=== PATIENT | male | born 1940 | race Caucasian/White ===

== ENCOUNTER 2016-04-07 13:40 | Emergency (ER) | payer MEDICARE, BC ==
--- NOTE | 2016-04-07 13:58 | Emergency Department Record ---
History of Present Illness - General Chief Complaint: Dizziness Stated Complaint: DIZZINESS Time Seen by Provider: 04/07/16 13:46 Source: Patient Mode of Arrival: Wheelchair Limitations: No limitations - History of Present Illness Initial Comments: 75 yo male presents to ED with a CC of dizziness and right sided scalp pain that began approximately 1 week ago. Patient reports that his symptoms worsen with head movement and position changes, and resolves with sitting and resting. Patient denies any focal weakness, numbness, or tingling symptoms. MD Complaint: Dizziness Onset/Timin -: Week(s) Timing: Unsure History of Same: No History of Trauma: No Severity: Mild Improves With: Nothing Worsens With: Nothing Associated Symptoms: Other - [place] Coma Scale Eye Response: (4) Open spontaneously Motor Response: (6) Obeys commands Verbal Response: (5) Oriented Manish Total: 15 - Related Data Home Medications Medication Instructions Recorded Confirmed Last Taken Amlodipine Besylate [Norvasc] 10 mg PO QAM 12/23/13 04/07/16 1 Day Ago Cholecalciferol [Vitamin D3] 1,000 unit PO QAM 12/23/13 04/07/16 1 Day Ago Clopidogrel Bisulfate [Plavix] 75 mg PO QAM 12/23/13 04/07/16 1 Day Ago Folic Acid 1 mg PO QAM 12/23/13 04/07/16 1 Day Ago Metoprolol Succinate [Toprol Xl] 50 mg PO BID 12/23/13 04/07/16 1 Day Ago Nabumetone 750 mg PO BID 12/23/13 04/07/16 1 Day Ago Nitroglycerin [Nitrostat] 0.4 mg SL ASDIR PRN 12/23/13 04/07/16 01/09/14 Pantoprazole Sodium 40 mg PO QAM 12/23/13 04/07/16 1 Day Ago Potassium Chloride [K-Tab ER] 30 meq PO BID 12/23/13 04/07/16 1 Day Ago Simvastatin [Zocor] 20 mg PO QAM 12/23/13 04/07/16 1 Day Ago Valsartan/Hydrochlorothiazide 1 each PO QAM 12/23/13 04/07/16 1 Day Ago [Diovan Hct 320-25 mg Tablet] Apixaban [Eliquis] 5 mg PO BID tab 10/10/15 04/07/16 Unknown Previous Rx's Medication Instructions Recorded Meclizine HCl [Antivert] 25 mg PO Q8H PRN #20 tablet 04/07/16 Allergies Allergy/AdvReac Type Severity Reaction Status Date / Time diazepam Allergy Unknown PT UNSURE Unverified 04/07/16 13:29 OF REACTION Penicillins Allergy Unknown ITCHING Unverified 04/07/16 13:29 Allergies: Allergy Unknown PT UNSURE Uncoded 12/23/13 23:47 OF REACTION sumac Allergy DIFFICULTY Uncoded 12/23/13 23:47 BREATHING Travel Screening - Travel/Exposure Within Last 30 Days Have you traveled within the last 30 days?: No Review of Systems Constitutional: Denies: Chills, Fever, Malaise, Night sweats Eyes: Denies: Eye discharge, Eye pain ENT: Denies: Congestion, Ear pain, Epistaxis Respiratory: Denies: Cough, Dyspnea Cardiovascular: Denies: Chest pain, Dyspnea on exertion Endocrine: Denies: Fatigue, Heat or cold intolerance Gastrointestinal: Reports: Nausea. Denies: Abdominal pain, Vomiting Genitourinary: Denies: Incontinence, Retention Musculoskeletal: Denies: Arthralgia, Back pain, Gout, Joint swelling Skin: Denies: Bruising, Change in color Neurological: Denies: Abnormal gait, Confusion, Headache, Seizure Psychiatric: Denies: Anxiety Hematological/Lymphatic: Denies: Anemia, Blood Clots Past Medical History - SOCIAL HISTORY Smoking Status: Former smoker Alcohol Use: None Drug Use: None - RESPIRATORY Hx Respiratory Disorders: Yes Hx Sleep Apnea: Yes - CARDIOVASCULAR Hx Cardio Disorders: Yes Hx Cardiac Cath: Yes Hx Chest Pain: Yes Hx Heart Attack: Yes Hx Hypertension: Yes - NEURO Hx Neuro Disorders: No - GI Hx GI Disorders: Yes Hx Reflux: Yes - Hx Genitourinary Disorders: No - ENDOCRINE Hx Endocrine Disorders: No - MUSCULOSKELETAL Hx Musculoskeletal Disorders: Yes Hx Back Injury: Yes Comment:: back surgery x3 in 10 months - PSYCH Hx Psych Problems: No - HEMATOLOGY/ONCOLOGY Hx Hematology/Oncology Disorders: No Family Medical History Any Significant Family History?: Yes Hx Cancer: Brother/Sister Hx Diabetes: Mother, Brother/Sister Hx Heart Disease: Father, Mother Hx HTN: Father, Mother, Grandparents Hx Stroke: Grandparents Physical Exam - General General Appearance: Alert, Oriented x3, Cooperative, No acute distress Limitations: No limitations - Head Head exam: Atraumatic, Normocephalic, Normal inspection Head exam detail: negative: Abrasion, Contusion, Morgan's sign, General tenderness, Hematoma, Laceration - Eye Eye exam: Normal appearance. negative: Conjunctival injection, Periorbital swelling, Periorbital tenderness, Scleral icterus - ENT Ear exam: negative: Auricular hematoma, Auricular trauma Nasal Exam: negative: Active bleeding, Discharge, Dried blood, Foreign body Mouth exam: negative: Drooling, Laceration, Muffled voice, Tongue elevation - Neck Neck exam: Normal inspection. negative: Meningismus, Tenderness - Respiratory Respiratory exam: Normal lung sounds bilaterally. negative: Rales, Respiratory distress, Rhonchi, Stridor - Cardiovascular Cardiovascular Exam: Normal rhythm, Normal heart sounds, Bradycardia - GI/Abdominal GI/Abdominal exam: Soft. negative: Rebound, Rigid, Tenderness - Rectal Rectal exam: Deferred - exam: Deferred - Extremities Extremities exam: Normal inspection. negative: Calf tenderness, Pedal edema, Tenderness - Back Back exam: Denies: CVA tenderness (R), CVA tenderness (L) - Neurological Neurological exam: Alert, Normal gait, Oriented X3 - Psychiatric Psychiatric exam: Normal affect, Normal mood - Skin Skin exam: Normal color. negative: Abrasion Type of lesion: negative: abrasion Course Vital Signs 04/07/16 13:42 Temperature 97.8 F Pulse Rate 50 L Respiratory 16 Rate Blood Pressure 184/97 Pulse Ox 95 - Reevaluation(s) Reevaluation #1: 04/07/16 13:58 EKG: Sinus Bradycardia LAD, Mild IVCD T wave inversions V3-V6 Reevaluation #2: 04/07/16 14:47 Labs reviewed and are grossly unremarkable for an acute process. CT Brain: Generalized atrophy with deep white matter changes, nothing acute. Reevaluation #3: 04/07/16 15:51 Patient reassessed, reports improvement in his symptoms overall and appears stable for discharge at this time. Medical Decision Making - Lab Data Result diagrams: 04/07/16 14:15 04/07/16 14:15 Disposition Disposition: Discharge Clinical Impression: Vertigo Disposition: Home, Self-Care Condition: (2) Stable Instructions: Dizziness (ED) Additional Instructions: Return to ED if your symptoms worsen or if you have any concerns. Follow-up with your family doctor in 3-5 days as directed. Antivert as directed. Prescriptions: Meclizine HCl [Antivert] 25 mg PO Q8H PRN #20 tablet PRN Reason: Dizziness Forms: Patient Portal Access Time of Disposition: 15:52
[2016-04-07 14:23] LABS: BASO % 0.4 % (0-6); EOS % 3.4 % (0-6); GRAN % 70.5 % (47-80); HEMATOCRIT 47.1 % (42.0-52.0); HEMOGLOBIN 16.7 gm/dl (14.0-18.0); MEAN CELL VOLUME 88.5 fl (81-97); MEAN CORPUSCULAR HEMOGLOBIN 31.4 pg (27-33); MEAN CORPUSCULAR HGB CONC 35.5 g/dl (32-36); MEAN PLATELET VOLUME 11.1 fl (7.4-10.4); MONO % 11.7 % (0-9); PLATELET COUNT 128 K/uL (130-400); RED BLOOD COUNT 5.32 M/uL (4.40-5.70); RED CELL DISTRIBUTION WIDTH 13.7 % (11.5-14.5); WHITE BLOOD COUNT W/O DIFF 5.1 K/uL (4.2-12.2)
[2016-04-07 14:36] LABS: ALB/GLOB RATIO 1.5 (1.1-1.8); ALKALINE PHOSPHATASE 57 U/L (38-126); ALT/SGPT 40 U/L (21-72); ANION GAP 13.8 (7-16); AST/SGOT 28 U/L (17-59); BILIRUBIN,TOTAL 1.03 mg/dL (0.2-1.3); BLOOD UREA NITROGEN 21 mg/dL (9-20); CARBON DIOXIDE 28.2 mmol/L (22-30); CREATININE 0.9 mg/dL (0.66-1.25); EST GLOMERULAR FILTRATION RATE > 60 ml/min; GLUCOSE,RANDOM 111 mg/dL (70-110); TOTAL PROTEIN 6.7 gm/dL (6.3-8.2)
[2016-04-07] MEDS ORDERED: MECLIZINE 25 MG TABLET PO ONE (14:49)
== END 2016-04-07 16:12 | disposition home or self-care (01) ==
LOC: ER 13:40
DX: R42 Dizziness and giddiness (principal); I10 Essential (primary) hypertension; Z87.891 Personal history of nicotine dependence; I25.2 Old myocardial infarction
CPT/HCPCS: 70450; 80053; 85025; 93005; 93010; 99284

== ENCOUNTER 2016-10-04 18:26 | Emergency (ER) | payer MEDICARE, BC ==
--- NOTE | 2016-10-04 18:49 | Emergency Department Record ---
History of Present Illness - General Chief complaint: Male Urogenital Problem Stated complaint: BLOOD IN URINE Time Seen by Provider: 10/04/16 18:38 Source: Patient Mode of Arrival: Ambulatory Limitations: No limitations - History of Present Illness Initial comments: The patient is here due to blood in his urine for the last 2-3 days off and on. He denies any AP, nausea, vomiting, or back pain. The patient states he has had this issue off and on for almost 6 months and it seems to be worse when he mows the lawn and feels like he is getting aurelia on the mower. He is on Eliquis for his heart and was in the a month or so ago and did receive Macrobid for this issue which did improve his symptoms. MD Complaint: Dysuria Onset/Timin -: Days(s) Severity: Mild Severity scale (1-10): 1 Quality: Aching Reports: Blood in urine - Related Data Previous Rx's Medication Instructions Recorded Ciprofloxacin HCl [Cipro] 500 mg PO Q12HR #14 tablet 10/04/16 Allergies Allergy/AdvReac Type Severity Reaction Status Date / Time diazepam Allergy Unknown PT UNSURE Verified 10/04/16 18:38 OF REACTION Penicillins Allergy Unknown ITCHING Verified 10/04/16 18:38 pneumococcal vaccine Allergy PT UNSURE Verified 10/04/16 19:38 OF REACTION sumac Allergy Severe DIFFICULTY Uncoded 10/04/16 18:38 BREATHING Travel Screening - Travel/Exposure Within Last 30 Days Have you traveled within the last 30 days?: No - Travel/Exposure Within Last Year Have you traveled outside the [place] in the last year?: No - Additonal Travel Details Have you been exposed to anyone with a communicable illness?: No - Travel Symptoms Symptom Screening: None Review of Systems Constitutional: Denies: Chills, Fever Past Medical History - SOCIAL HISTORY Smoking Status: Former smoker Alcohol Use: None Drug Use: None - RESPIRATORY Hx Respiratory Disorders: Yes Hx Sleep Apnea: Yes Hx of CPAP: No - CARDIOVASCULAR Hx Cardio Disorders: Yes Hx Cardiac Cath: Yes Hx Chest Pain: Yes Hx Heart Attack: Yes Hx Hypertension: Yes - NEURO Hx Neuro Disorders: No - GI Hx GI Disorders: Yes Hx Reflux: Yes - Hx Genitourinary Disorders: Yes Comment:: one kidney, congenital - ENDOCRINE Hx Endocrine Disorders: No - MUSCULOSKELETAL Hx Musculoskeletal Disorders: Yes Hx Back Injury: Yes Comment:: back surgery x3 in 10 months - PSYCH Hx Psych Problems: No - HEMATOLOGY/ONCOLOGY Hx Hematology/Oncology Disorders: No Family Medical History Any Significant Family History?: Yes Hx Cancer: Brother/Sister Hx Diabetes: Mother, Brother/Sister Hx Heart Disease: Father, Mother Hx HTN: Father, Mother, Grandparents Hx Stroke: Grandparents Physical Exam - General General Appearance: Alert, Oriented x3, Cooperative, No acute distress - Head Head exam: Atraumatic, Normocephalic, Normal inspection - Eye Eye exam: Normal appearance, PERRL - Neck Neck exam: Normal inspection, Full ROM. negative: Tenderness - Respiratory Respiratory exam: Normal lung sounds bilaterally. negative: Respiratory distress - Cardiovascular Cardiovascular Exam: Regular rate, Normal rhythm, Normal heart sounds - GI/Abdominal GI/Abdominal exam: Soft, Normal bowel sounds. negative: Tenderness - Extremities Extremities exam: Normal inspection, Full ROM, Normal capillary refill. negative: Tenderness - Back Back exam: Reports: Normal inspection. Denies: CVA tenderness (R), CVA tenderness (L), Paraspinal tenderness Course Vital Signs 10/04/16 18:29 Temperature 98.9 F Pulse Rate 66 Respiratory 20 Rate Blood Pressure 181/93 Pulse Ox 94 L - Reevaluation(s) Reevaluation #1: The patient is doing very well at this time. I did explain to him that he most likely has a bladder infection but due to the blood thinners he is on it is causing some hematuria. We will order the patient a noncontrast CT due to the hx of hematuria and have him F/U with his PCP later this week. 10/04/16 19:34 Reevaluation #2: The patient is doing well and denies any pain or discomfort. I did explain the results to him and the need for F/U. 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 No hydro or calcifications present. Urinary bladder appears slightly irregular.) Disposition Disposition: Discharge Clinical Impression: Hematuria Qualifiers: Hematuria type: unspecified type Qualified Code(s): R31.9 - Hematuria, unspecified Disposition: Home, Self-Care Condition: (1) Good Instructions: Hematuria (ED) Additional Instructions: Please take the Cipro as directed and decrease your dose of Eliquis to 2.5 mg BID for 7 days. Please drink plenty of fluids. Please see your PCP next week for recheck and also F/U with Dr. Schaeffer in the [facility] as directed. Return to the ER for any worsening symptoms, pain, fever, or vomiting. Prescriptions: Ciprofloxacin HCl [Cipro] 500 mg PO Q12HR #14 tablet Referrals: [facility] [Provider Group] Forms: Patient Portal Access Time of Disposition: 20:39 Quality - Quality Measures Quality Measures: N/A - Blood Pressure Screening View Details: Yes Does Patient Have Any of the Following: No Blood Pressure Classification: Hypertensive Reading Systolic Measurement: 181 Diastolic Measurement: 93 Screening for High Blood Pressure: < Pre-Hypertensive BP, F/U Documented > [ [id number]] Pre-Hypertensive Follow-up Interventions: Referral to alternative/primary care provider.
[2016-10-04 18:50] LABS: URINE BILIRUBIN NEGATIVE (NEGATIVE); URINE BLOOD LARGE (NEGATIVE); URINE COLOR RED; URINE GLUCOSE (UA) NEGATIVE (NEGATIVE); URINE KETONE TRACE (NEGATIVE); URINE LEUKOCYTE ESTERASE MODERATE (NEGATIVE); URINE NITRITE POSITIVE (NEGATIVE)
[2016-10-04 18:51] LABS: URINE APPEARANCE BLOODY; URINE PROTEIN 300 mg/dL (NEGATIVE)
[2016-10-04 18:56] LABS: URINE BACTERIA FEW; URINE EPITHELIAL CELLS 0 - 2 (FEW); URINE RBC TNTC (NONE SEEN)
[2016-10-04 19:10] LABS: BASO % 0.8 % (0-6); EOS % 4.2 % (0-6); GRAN % 65.5 % (47-80); HEMATOCRIT 47.6 % (42.0-52.0); HEMOGLOBIN 16.8 gm/dl (14.0-18.0); LYMPH % 18.7 % (16-45); MEAN CELL VOLUME 87.5 fl (81-97); MEAN CORPUSCULAR HEMOGLOBIN 30.9 pg (27-33); MEAN CORPUSCULAR HGB CONC 35.3 g/dl (32-36); MEAN PLATELET VOLUME 11.2 fl (7.4-10.4); MONO % 10.8 % (0-9); PLATELET COUNT 141 K/uL (130-400); RED BLOOD COUNT 5.44 M/uL (4.40-5.70); RED CELL DISTRIBUTION WIDTH 13.4 % (11.5-14.5); WHITE BLOOD COUNT W/O DIFF 5.3 K/uL (4.2-12.2)
[2016-10-04 19:22] LABS: ALBUMIN 4.2 gm/dL (3.5-5.0); ALKALINE PHOSPHATASE 60 U/L (38-126); ALT/SGPT 48 U/L (21-72); ANION GAP 10.6 (7-16); AST/SGOT 34 U/L (17-59); BILIRUBIN,TOTAL 0.85 mg/dL (0.2-1.3); BLOOD UREA NITROGEN 19 mg/dL (9-20); CARBON DIOXIDE 24.4 mmol/L (22-30); EST GLOMERULAR FILTRATION RATE > 60 ml/min; GLUCOSE,RANDOM 158 mg/dL (70-110); TOTAL PROTEIN 6.8 gm/dL (6.3-8.2)
[2016-10-04] MEDS ORDERED: CIPROFLOXACIN HCL 500 MG TABLET PO ONE (19:30)
--- NOTE | 2016-10-06 07:24 | CT SCAN REPORT ---
EXAM: CT OF THE ABDOMEN AND PELVIS WITHOUT CONTRAST HISTORY: HEMATURIA. TECHNIQUE: Routine noncontrast CT examination of the abdomen and pelvis was performed without intravenous contrast administration. Comparison: None. FINDINGS: There is mild dependent atelectasis in each lung base. Minor linear scarring versus atelectasis also noted in the anterior lung bases. No pleural or pericardial effusion. The heart is not enlarged. The distal portion of the thoracic aorta is tortuous and atherosclerotic. There is diffuse decreased density of the liver relative to the spleen consistent with steatosis. There is a geographic area of relative hyperdensity within the lateral segment of the left liver lobe measuring 6.5 x 3.9 x 3.5 cm consistent with sparing from fatty infiltration. A small focus of sparing is also noted adjacent to the gallbladder fossa. No suspicious focal hepatic lesion is identified. The spleen, pancreas, and adrenal glands are normal in appearance. There is absence of any normal appearing left sided kidney. The right kidney is relatively normal in position. There is a soft tissue density structure contiguous with the inferomedial margin of the right kidney measuring 5.1 x 7.1 x 4.0 cm. It is indeterminate whether this is a dystrophic ectopic left kidney fused with the right kidney or an exophytic renal mass. It does not have separate renal sinus. No nephrolithiasis is seen. The right renal collecting system is normal in caliber. The right ureter is normal in appearance. There may be a left ureter arising from the above described mass like structure near its medial margin also normal in caliber. Evaluation of the urinary bladder is limited by lack of distention. Wall thickening of the urinary bladder superiorly on the right would be difficult to exclude. No definite pelvic mass nor lymphadenopathy. No gross bowel dilatation nor bowel wall thickening. Evaluation of the distal colon and rectum is limited by lack of distention. Fat density prominence is demonstrated within the right inguinal canal consistent with spermatic cord lipoma or fat within an inguinal hernia sac. There is also a possible tiny fat filled direct inguinal hernia on the left. No lytic or blastic bone lesion. There are degenerative changes scattered within the visualized spine. Post laminectomy changes at the L5 level. IMPRESSION: 1. ABSENCE OF A NORMAL APPEARING LEFT SIDED KIDNEY. SOFT TISSUE DENSITY STRUCTURE CONTIGUOUS WITH THE INFEROMEDIAL MARGIN OF THE RIGHT KIDNEY MEASURING 4.0 X 5.1 X 7.1 CM. 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 FURTHER EVALUATION WITH CT UROGRAM IS RECOMMENDED TO EXCLUDE UNDERLYING MALIGNANCY AN ISODENSE COLLECTING SYSTEM OF THE PRESUMED ECTOPIC KIDNEY SECONDARY TO HEMORRHAGE CANNOT BE EXCLUDED. 2. NO EVIDENCE OF OBSTRUCTIVE UROPATHY. 3. EVALUATION OF THE URINARY BLADDER IS LIMITED BY LACK OF DISTENTION. MILD WALL THICKENING OF THE URINARY BLADDER SUPERIORLY AND RIGHTWARD IS DIFFICULT TO EXCLUDE. 4. HEPATIC STEATOSIS WITH AREAS OF SPARING. 5. RIGHT INGUINAL HERNIA. POSSIBLE TINY LEFT INGUINAL HERNIA. 6. NOT MENTIONED ABOVE IS A CALCIFIED GRANULOMA IN THE RIGHT LUNG BASE. JOB NUMBER: [id number] [facility]
== END 2016-10-04 20:55 | disposition home or self-care (01) ==
LOC: ER 18:26
DX: R31.0 Gross hematuria (principal); R30.0 Dysuria; Z79.01 Long term (current) use of anticoagulants; I10 Essential (primary) hypertension; I25.2 Old myocardial infarction; Z87.891 Personal history of nicotine dependence
CPT/HCPCS: 74176; 80048; 80076; 81001; 85025; 99283; 99284

== ENCOUNTER 2016-12-28 10:18 | Day surgery (SDC) | payer MEDICARE, BC ==
[~2016-12-28 10:18] MED LIST: ACETAMINOPHEN 1,000 MG/100 ML BTL IV ONE; CEFAZOLIN 2 Gram 2 GM/50 ML BAG IVPB ONE
[2016-12-28] MEDS ORDERED: PROPOFOL 10 MG/ML VIAL IV ONE (10:19)
[2016-12-28] MEDS ORDERED: LIDOCAINE 2% MDV (20MG/ML) 20ML VIAL IV ONE (10:19)
[2016-12-28] MEDS ORDERED: MIDAZOLAM HCL 2MG/2ML VIAL IV ONE (10:19)
[2016-12-28] MEDS ORDERED: FAMOTIDINE 20MG TABLET PO ONE (10:19)
[2016-12-28] MEDS ORDERED: ONDANSETRON HCL IV 4 MG/2 ML VIAL IVP ONE (10:19)
[2016-12-28] MEDS ORDERED: BUPIVACAINE 0.25% W/EPI MPF 30ML VIAL IVP ONE (10:19)
[2016-12-28] MEDS ORDERED: MECLIZINE 25 MG TABLET PO ONE (10:19)
[2016-12-28] MEDS ORDERED: FENTANYL PF 100MCG/2ML VIAL IV ONE (10:19)
[2016-12-28] MEDS ORDERED: SEVOFLURANE 250 ML INH ONE (10:19)
[2016-12-28] MEDS ORDERED: METOCLOPRAMIDE 10 MG TABLET PO ONE (10:19)
[2016-12-28] MEDS ORDERED: HEPARIN SODIUM FLUSH 100 UNITS/ML SYR 5ML IVP ONE (10:19)
[2016-12-28 10:48] LABS: BASO % 0.7 % (0-6); EOS % 3.3 % (0-6); GRAN % 72.3 % (47-80); HEMATOCRIT 48.7 % (42.0-52.0); HEMOGLOBIN 16.8 gm/dl (14.0-18.0); LYMPH % 13.2 % (16-45); MEAN CELL VOLUME 88.1 fl (81-97); MEAN CORPUSCULAR HEMOGLOBIN 30.4 pg (27-33); MEAN CORPUSCULAR HGB CONC 34.5 g/dl (32-36); MEAN PLATELET VOLUME 11.1 fl (7.4-10.4); MONO % 10.5 % (0-9); PLATELET COUNT 147 K/uL (130-400); RED BLOOD COUNT 5.53 M/uL (4.40-5.70)
[2016-12-28 11:07] LABS: BLOOD UREA NITROGEN 21 mg/dL (8-23); CREATININE 0.9 mg/dL (0.7-1.2); EST GLOMERULAR FILTRATION RATE > 60 mL/min; GLUCOSE,RANDOM 115 mg/dL (74-109)
--- NOTE | 2016-12-29 08:46 | RADIOLOGY REPORT ---
EXAM: PORTABLE CHEST HISTORY: POST [id number] INSERTION. TECHNIQUE: A single AP portable view of the chest was obtained. Comparison: Portable chest 04/03/14. FINDINGS: Since the prior exam a left subclavian venous catheter has been placed presumably corresponding to the venous access port, with the catheter tip extending down into the region of the right atrium. No definite pneumothorax identified. No pleural effusion evident. Mild torsion of the aorta. IMPRESSION: VENOUS ACCESS PORT PLACED FROM THE LEFT WITH THE CATHETER EXTENDING DOWN INTO THE REGION OF THE RIGHT ATRIUM. NO DEFINITE PNEUMOTHORAX IDENTIFIED. JOB NUMBER: [id number] [facility]
--- NOTE | 2016-12-29 12:50 | Operative Note ---
DATE OF SURGERY: 12/28/2016 Surgeon: Gallo Craig DO PREOPERATIVE DIAGNOSIS: Bladder cancer. POSTOPERATIVE DIAGNOSIS: Bladder cancer. OPERATION: Infusaport with C-arm. Indication: The patient is a 75-year-old male who has an unfortunate diagnosis of bladder cancer. [place] was [place] [facility] [place]. Risks, benefits, and alternatives were discussed. Risks including bleeding, infection, 1% chance of pneumothorax, malfunctioning port, need for replacement. He understood this full. PROCEDURE: Thereafter, consent was signed and questions answered. He was taken to the operating room and placed in a supine position. General anesthesia was administered per the department of anesthesia. The patient's arms were tucked to the side. His upper chest and neck were shaved of hair and prepped and draped in the usual fashion. Adequate timeout was performed. He did receive preoperative antibiotic as well as DVT prophylaxis. A roll was placed between his shoulder blades. At this time, he was placed into Trendelenburg position. The patient's left subclavian region was anesthetized with a total of 8 mL of 0.25% Sensorcaine with epinephrine. At this time, an 18-gauge finder needle was used to cannulate the left subclavian vein on the first attempt. Through this, a guidewire was inserted under direct visualization. Once this was in adequate position, a pocket was created inferior to this. A 9.[place] single-lumen port was then assembled and trimmed. A dilator and Peel-Away sheath were used, fed over the wire under direct visualization. The wire and dilator were removed as the catheter was fed down the lumen of the Peel-Away sheath. After this was done, this was noted to be in adequate position. The distal tip was in appropriate position. This was aspirated and flushed without difficulty with a Rosales needle. The port was then sutured to the pectoralis fascia with 0 Vicryl in 3 spots. The skin was then closed with 4-0 Vicryl. He was taken to the recovery room in satisfactory condition. Chest x-ray pending. CC: ISAI BLACKWOOD D.O. Dr. Josh BADILLO
== END 2016-12-28 15:00 | disposition home or self-care (01) ==
LOC: SUR 10:18
PROVIDERS: ATTEND Surgery
DX: Z45.2 Encounter for adjustment and management of vascular access device (principal); I48.2 Chronic atrial fibrillation; Z79.01 Long term (current) use of anticoagulants; I10 Essential (primary) hypertension; E78.00 Pure hypercholesterolemia, unspecified
CPT/HCPCS: 36561; 00532; 85025; 80048; 71010; 77001; J2405; J3010; J1642; J0690

== ENCOUNTER 2017-08-24 14:49 | Emergency (ER) | payer MEDICARE, BC ==
[2017-08-24] MEDS ORDERED: SODIUM CHLORIDE 0.9% 500 ML IV ONE (14:50)
[2017-08-24] MEDS ORDERED: ONDANSETRON HCL IV 4 MG/2 ML VIAL IVP ONE (14:50)
--- NOTE | 2017-08-24 14:53 | Emergency Department Record ---
History of Present Illness - General Stated Complaint: VOMITING Time Seen by Provider: 08/24/17 14:49 Source: Patient, Family Mode of Arrival: Ambulatory Limitations: No limitations - History of Present Illness Initial Comments: 76 yo male presents with nausea and vomiting since this morning. He has known bladder cancer. He has been treated with radiation and chemo. He reports he has had bloody urine for 1.5 months. He states he is treated at the [facility]. He denies current abdominal pain. No fever. No diarrhea. His PCP is Dr Hernandez. He states he is scheduled for surgery for his bladder cancer in one month at the [facility]. He has seen his urology surgeon in the last week. His doctor in aware of the 1.5 months of hematuria. He has not had retention so he has not had a weiss catheter. His surgeon is Dr Ghassan Vizcaino of [facility]. He was last seen on August 19. Complaint: Other -: Hour(s) (4) Location: Other (Denies pain) Migration to: Other Severity: Moderate Quality: Other Consistency: Constant Improves With: Nothing Worsens With: Nothing Associated Symptoms: Other (1.5 months of hematuria) - Related Data Previous Rx's Medication Instructions Recorded Promethazine HCl [Phenergan] 25 mg PO Q8H PRN #20 tablet 08/24/17 Promethazine HCl [Phenergan] 50 mg RC Q8H PRN #14 supp.rect 08/24/17 Allergies Allergy/AdvReac Type Severity Reaction Status Date / Time diazepam Allergy Severe severe Verified 08/24/17 14:57 hypotension Penicillins Allergy Intermediate RASH Verified 08/24/17 14:57 pneumococcal vaccine Allergy PT UNSURE Verified 08/24/17 14:57 OF REACTION sumac Allergy Severe ANAPHYLAXIS Uncoded 10/30/16 16:52 Review of Systems Constitutional: Denies: Chills, Fever, Malaise, Weakness Eyes: Denies: Eye discharge ENT: Denies: Congestion, Throat pain Respiratory: Denies: Cough, Dyspnea Cardiovascular: Denies: Chest pain, Syncope Endocrine: Denies: Fatigue, Polydipsia, Polyuria Gastrointestinal: Reports: Nausea, Vomiting. Denies: Abdominal pain, Constipation, Diarrhea, Hematemesis, Hematochezia, Melena Genitourinary: Reports: Frequency, Hematuria Musculoskeletal: Denies: Arthralgia, Back pain, Myalgia Skin: Denies: Bruising, Change in color, Rash Neurological: Denies: Confusion, Headache, Numbness, Weakness Psychiatric: Denies: Anxiety Hematological/Lymphatic: Denies: Easy bleeding, Easy bruising, Swollen glands Past Medical History - SOCIAL HISTORY Smoking Status: Former smoker Alcohol Use Comment: maybe 4 beers a yr if it is hot outside - RESPIRATORY Hx Respiratory Disorders: Yes Hx Sleep Apnea: Yes Hx of CPAP: No - CARDIOVASCULAR Hx Cardio Disorders: Yes Hx Abnormal EKG: Yes ([place]) Hx Cardiac Cath: Yes Hx Chest Pain: Yes (none recently-last pain 2yrs ago) Hx Heart Attack: Yes (several MIs x6) Hx Hypertension: Yes (meds fair control) Hx Irregular Heartbeat: Yes (Afib) Hx Coronary Artery Disease: Yes Hx Coronary Stent: Yes (2002 -x1) Comment:: high cholesterol - NEURO Hx Neuro Disorders: No - GI Hx GI Disorders: Yes Hx Reflux: Yes Hx of Polyps: Yes - Hx Genitourinary Disorders: Yes Hx Bladder Problem: Yes (blood in urine for past 3 months) 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, congenital - ENDOCRINE Hx Endocrine Disorders: No - MUSCULOSKELETAL Hx Musculoskeletal Disorders: Yes Hx Arthritis: Yes (elbows) Hx Back Injury: Yes Comment:: back surgery x3 in 10 months - PSYCH Hx Psych Problems: No - HEMATOLOGY/ONCOLOGY Hx Hematology/Oncology Disorders: Yes Hx Cancer: Yes (bladder) Comment:: on blood thinner for heart stents Family Medical History Hx Cancer: Brother/Sister Hx Diabetes: Mother, Brother/Sister Hx Heart Disease: Father, Mother Hx HTN: Father, Mother, Grandparents Hx Stroke: Grandparents Physical Exam - General General Appearance: Alert, Oriented x3, Cooperative, No acute distress (Vomiting ) Limitations: No limitations - Head Head exam: Atraumatic, Normal inspection - Eye Eye exam: Normal appearance. negative: Conjunctival injection, Scleral icterus - ENT ENT exam: Normal exam, Mucous membranes moist Ear exam: Normal external inspection Nasal Exam: Normal inspection Mouth exam: Normal external inspection - Neck Neck exam: Normal inspection - Respiratory Respiratory exam: Normal lung sounds bilaterally. negative: Respiratory distress - Cardiovascular Cardiovascular Exam: Regular rate, Normal rhythm, Normal heart sounds - GI/Abdominal GI/Abdominal exam: Soft. negative: Tenderness - Extremities Extremities exam: Normal inspection - Back Back exam: Reports: Normal inspection, Full ROM. Denies: CVA tenderness (R), CVA tenderness (L), Muscle spasm, Rash noted, Tenderness - Neurological Neurological exam: Alert, Oriented X3 - Psychiatric Psychiatric exam: Normal affect, Normal mood - Skin Skin exam: Dry, Intact, Normal color, Warm Course - Reevaluation(s) Reevaluation #1: The CBC and CMP were reviewed. No acute changes on the labs Normal WBC and Hgb. 08/24/17 15:37 08/24/17 15:45 On recheck the pain level remains 0/10. He denies pain on arrival His nausea is well controlled at 0/10 PO challenge will be attempted as he is asking for water or ice chips. 08/24/17 15:52 The UA is negative for bacteria or WBC. It is N and LE negative. 08/24/17 16:14 The patient continues to feel greatly improved with the Phenergan. He will be given and Rx for tabs and suppositories for home. We discussed the results and the reasons for return to the ED. Medical Decision Making - Lab Data Result diagrams: 08/24/17 14:30 08/24/17 14:30 Disposition Disposition: Discharge Clinical Impression: Nausea and vomiting Qualifiers: Vomiting type: unspecified Vomiting Intractability: non-intractable Qualified Code(s): R11.2 - Nausea with vomiting, unspecified Hematuria Qualifiers: Hematuria type: gross Qualified Code(s): R31.0 - Gross hematuria Disposition: Home, Self-Care Condition: (1) Good Instructions: Acute Nausea and Vomiting (ED) Additional Instructions: Take the prescriptions provided today as directed. Call your family doctor and your urologist. Call to schedule the next available appointment for a recheck. Return to ED if your symptoms worsen or if you have any new concerns. Review the final Emergency Record and test results with your doctor on follow up Prescriptions: Promethazine HCl [Phenergan] 25 mg PO Q8H PRN #20 tablet PRN Reason: Nausea Promethazine HCl [Phenergan] 50 mg RC Q8H PRN #14 supp.rect PRN Reason: Nausea Time of Disposition: 16:17 Quality - Quality Measures Quality Measures: N/A - Blood Pressure Screening Does Patient Have Any of the Following: Active Dx of HTN Blood Pressure Classification: Pre-Hypertensive BP Reading Systolic Measurement: 135 Diastolic Measurement: 77 Screening for High Blood Pressure: Patient Exclusion, Hx of HTN [[id number]]
[2017-08-24 14:58] LABS: HEMATOCRIT 37.3 % (42.0-52.0); HEMOGLOBIN 12.9 gm/dl (14.0-18.0); MEAN CELL VOLUME 91.6 fl (81-97); MEAN CORPUSCULAR HGB CONC 34.6 g/dl (32-36); MEAN PLATELET VOLUME 10.6 fl (7.4-10.4); PLATELET COUNT 184 K/uL (130-400); RED BLOOD COUNT 4.07 M/uL (4.40-5.70); RED CELL DISTRIBUTION WIDTH 13.9 % (11.5-14.5); WHITE BLOOD COUNT W/O DIFF 6.3 K/uL (4.2-12.2)
[2017-08-24 14:59] LABS: MEAN CORPUSCULAR HEMOGLOBIN 31.6 pg (27-33)
[2017-08-24 15:09] LABS: BLOOD UREA NITROGEN 24 mg/dL (8-23); CREATININE 0.7 mg/dL (0.7-1.2); EST GLOMERULAR FILTRATION RATE > 60 mL/min
[2017-08-24 15:10] LABS: TOTAL PROTEIN 6.7 g/dL (6.6-8.7)
[2017-08-24] MEDS ORDERED: PROMETHAZINE HCL 12.5 MG in 0.9 % SODIUM CHLORIDE 100ML 100 ML IVPB ONE (15:10)
[2017-08-24 15:12] LABS: GLUCOSE,RANDOM 145 mg/dL (74-109); PARTIAL THROMBOPLASTIN TIME 36.2 SECONDS (24.5-39.1); PROTHROMBIN TIME (PATIENT) 11.2 SECONDS (9.5-12.1)
[2017-08-24 15:15] LABS: ALB/GLOB RATIO 1.6 (1.1-1.8); ALBUMIN 4.1 g/dL (4.0-5.0); ALKALINE PHOSPHATASE 69 U/L (40-129); ALT/SGPT 13 U/L (<41); AST/SGOT 29 U/L (10.0-50.0)
[2017-08-24 15:44] LABS: URINE APPEARANCE TURBID; URINE BILIRUBIN NEGATIVE (NEGATIVE); URINE BLOOD LARGE (NEGATIVE); URINE COLOR RED; URINE GLUCOSE (UA) NEGATIVE (NEGATIVE); URINE KETONE TRACE (NEGATIVE); URINE LEUKOCYTE ESTERASE TRACE (NEGATIVE); URINE NITRITE NEGATIVE (NEGATIVE); URINE UROBILINOGEN 0.2 E.U./dL (0.20 - 1.00)
[2017-08-24 15:48] LABS: URINE PROTEIN 300 mg/dL (NEGATIVE)
[2017-08-24 15:49] LABS: URINE BACTERIA NONE SEEN; URINE EPITHELIAL CELLS 0 - 2 (FEW); URINE WBC 0 - 2 (0-2/hpf)
== END 2017-08-24 16:36 | disposition home or self-care (01) ==
LOC: ER 14:49
DX: R11.2 Nausea with vomiting, unspecified (principal); R31.0 Gross hematuria; C67.9 Malignant neoplasm of bladder, unspecified; I10 Essential (primary) hypertension; I25.2 Old myocardial infarction; I48.91 Unspecified atrial fibrillation; Z79.01 Long term (current) use of anticoagulants; Z87.891 Personal history of nicotine dependence
CPT/HCPCS: 80053; 81001; 85027; 85610; 85730; 96365; 96375; 99284; J2405; J2550

== ENCOUNTER 2017-10-18 11:37 | Inpatient (IN) | payer MEDICARE, BC ==
[2017-10-18] MEDS ORDERED: ONDANSETRON 4 MG ODT TABLET SL PRN (14:25)
[2017-10-18] MEDS ORDERED: METOCLOPRAMIDE 10 MG TABLET PO PRN (14:25)
--- NOTE | 2017-10-18 15:44 | History & Physical ---
History of Present Illness - Date Date of Service for History & Physical: 10/18/17 - History of Present Illness Admitting Diagnosis: Deconditioning d/t pyelonephritis History of Present Illness: PMHx: Multiple RI, HTN, Bladder CA, s/p bladder removal. SVT? Pt was admitted to our service for pyelonephritis and severe post-op penile pain. During his stay on our inpt service, pt was accepted for transfer to [facility] via urologist Dr. Ferris for his post-op pain but a bed was not available. He had ANNE MARIE which trended down to normal when fluids were stopped (evidence of hydronephrosis on CT) and nephrotoxic meds were avoided. WBC's trended down with rocephin IV BID. BP meds were held during his entire stay given that he was hypotensive on admission and normotensive without them. Urine cx showed E.coli sensitive to rocephin and pt will be transitioned to PO cefdinir BID for 5 additional days on the swingbed service. Pt's post op pain however did not reduce during his stay and he still requires 30mg morphine Q4 hours and tylenol 1000mg Q6 hours scheduled. Appointment with Dr. Ferris (urology/oncology) scheduled on outpt basis, hopefully for Nupur to schedule for this week. Pt is poor historian and is unsure why he is on eliquis. He has prior problem on chart of SVT but no a-fib. Without BB pt had normal HR during his stay. Today he has no complaints other than consistent penile pain described as urgency. General - Cognitive Patterns Speech: Normal Thought Process: Intact Thought Content: Normal Orientation: Oriented x3 - Communication Preferred Language?: Occitan Sample Coordinator Required: No Preferred Method of Learning: Seeing, Doing, Reading Comprehension Ability: No Impairment Able to Read: Yes Able to Write: Yes Select best description of speech pattern: Clear Speech Ability to express ideas and wants: Understood Understanding verbal content: Understands - Psychosocial Well-Being Usual Living Arrangement: Spouse - Physical Functioning Activity Level: Up with assist x1 Turning: Self ad sim ROM Ability: Moves all extremities Assistive Devices: 2 Wheel Walker Ambulation Ability: Needs Assist Bed Mobility: Independent Transfer Ability: Needs Assist Bathing Ability: Independent Personal Hygiene: Independent Dressing Ability: Independent Eating (Feeding) Ability: Independent Toileting Ability: Needs Assist Administer Own Medication: Independent - Continence Bowel Pattern: Normal for Patient Bladder Pattern: Normal, Dribbling - Dental Status Unable to examine: No Broken or loosely fitting full or partial dentures: No No natural teeth or tooth fragment(s) (edentulous): No Abnormal mouth tissue (ulcers, masses, oral lesions, etc.): No Obvious or likely cavity or broken natural teeth: No Inflamed or bleeding gums or loose natural teeth: No Mouth/facial pain, discomfort or difficulty chewing: No - Nutrition Screening Poor oral intake > 1 week: No Unplanned weight loss in specified time frame: Yes Nutrition Support via tube feedings or parenteral nutrition: No Pressure Ulcer: No Significantly underweight define as BMI <18.5 kg/m2: No Albumin <2.5mg/dL: No Persistent nausea/vomiting/diarrhea >3 days: No Difficulty chewing/swallowing/mouth sores: No Admitting Diagnosis: Yes Nutrition Risk Score: High Risk Review of Systems Constitutional: Reports: Weakness (generalized). Denies: Chills, Fever, Malaise Eyes: Denies: Eye discharge, Eye pain, Photophobia, Vision change ENT: Denies: Congestion, Ear pain Respiratory: Denies: Cough, Dyspnea, Wheezes Cardiovascular: Denies: Arrhythmia, Chest pain, Dyspnea on exertion, Murmurs, Orthopnea, Palpitations Gastrointestinal: Denies: Abdominal pain, Constipation, Diarrhea, Nausea, Vomiting Genitourinary: Reports: Urgency. Denies: Discharge, Dysuria, Testicular pain, Testicular mass Skin: Denies: Bruising Neurological: Reports: Weakness (generalized). Denies: Tremors Psychiatric: Denies: Anxiety, Depression Hematological/Lymphatic: Reports: Anemia (chronic) Past Medical History - SOCIAL HISTORY Smoking Status: Former smoker Alcohol Use Comment: maybe 4 beers a yr if it is hot outside - SURGICAL HISTORY Past Surgical History: Rt Elbow X 2;. Back Surgery (Ruptured disc) L-4 to L-5 x 3;. Cardiac Stent x 1 2001;. Several Heart Cath (Thinks about 7);. colonoscopy. bladder removal. prostate removal. urostomy placed. chemo for bladder cancer and radiation. 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, congenital - ENDOCRINE Hx Endocrine Disorders: No - MUSCULOSKELETAL Hx Musculoskeletal Disorders: Yes Hx Arthritis: Yes (elbows) Hx Back Injury: Yes Comment:: back surgery x3 in 10 months - PSYCH Hx Psych Problems: No - HEMATOLOGY/ONCOLOGY Hx Hematology/Oncology Disorders: Yes Hx Cancer: Yes (bladder) Comment:: on blood thinner for heart stents Family Medical History Any Significant Family History?: Yes Hx Cancer: Brother/Sister Hx Diabetes: Mother, Brother/Sister Hx Heart Disease: Father, Mother Hx HTN: Father, Mother, Grandparents Hx Stroke: Grandparents H&P Meds/Allergies - Allergies Allergies: Allergies Allergy/AdvReac Type Severity Reaction Status Date / Time diazepam Allergy Severe severe Verified 08/24/17 14:57 hypotension Penicillins Allergy Intermediate RASH Verified 08/24/17 14:57 pneumococcal vaccine Allergy PT UNSURE Verified 08/24/17 14:57 OF REACTION sumac Allergy Severe ANAPHYLAXIS Uncoded 10/30/16 16:52 - Home Medications Previous Rx's Medication Instructions Recorded Acetaminophen [Tylenol 500Mg Tab] 1,000 mg PO Q6HR tablet 10/18/17 Cefdinir 300 mg PO BID capsule 10/18/17 Metoclopramide HCl [Reglan] 10 mg PO Q6H PRN tablet 10/18/17 Morphine Sulfate [Msir] 30 mg PO Q4HR tablet 10/18/17 Sennosides/Docusate Sodium [Senna 2 each PO BID capsule 10/18/17 Plus] - Active Medications Active Medications: Current Medications Acetaminophen (Tylenol 500mg Tab) 1,000 mg PO Q6HR HARRY Apixaban (Eliquis) 5 mg PO BID HARRY Cefdinir (Cefdinir) 300 mg PO BID HARRY Stop: 10/22/17 22:01 Metoclopramide HCl (Reglan) 10 mg PO Q6H PRN PRN Reason: NAUSEA Morphine Sulfate (Msir) 30 mg PO Q4HR HARRY Stop: 10/25/17 18:01 Ondansetron HCl (Zofran Odt) 4 mg SL Q8H PRN PRN Reason: NAUSEA Senna/Docusate Sodium (Senna Plus) 2 each PO BID [facility] Simvastatin (Zocor) 20 mg PO QHS [facility] Physical Exam - Vital Signs Vital Signs: Vital Signs - Last 24 Hrs Temp Pulse Resp BP Pulse Ox 10/18/17 14:15 98.0 F 68 18 138/101 96 - General General Appearance: Alert, Oriented x3, Cooperative, No acute distress - Head Head exam: Atraumatic, Normocephalic - Eye Eye exam: Normal appearance, EOMI. negative: Conjunctival injection - ENT ENT exam: Normal exam, Mucous membranes moist Nasal Exam: Normal inspection Mouth exam: Normal external inspection - Neck Neck exam: Normal inspection, Full ROM - Respiratory Respiratory exam: Normal lung sounds bilaterally - Cardiovascular Cardiovascular Exam: Regular rate, Normal rhythm, Normal heart sounds - GI/Abdominal GI/Abdominal exam: Soft, Normal bowel sounds. negative: Tenderness - Rectal Rectal exam: Deferred - exam: Normal inspection. negative: Scrotal swelling, Testicular tenderness, Urethral discharge - Extremities Extremities exam: Normal inspection, Full ROM. negative: Pedal edema - Back Back exam: Reports: Normal inspection - Neurological Neurological exam: Alert, Oriented X3 - Psychiatric Psychiatric exam: negative: Anxious, Depressed - Skin Skin exam: negative: Rash Discharge Potential - Discharge Needs Community Services Used Prior to Admission: Home Health Nurse Patient Discharge Plan Description: Return Home Community Services Needed at Discharge: Home Health Nurse, Physical Therapy Plan - Swing Bed Certification Initial Certification Due: 10/18/17 14 Day Re-Cert Due: 11/01/17 44 Day Re-Cert Due: 12/01/17 74 Day Re-Cert Due: 12/31/17 - Detailed Diagnosis and Plan (1) Physical deconditioning Current Visit: Yes Status: Acute Base Code: R53.81 - OTHER MALAISE Priority: High Comment: - 2/2 to pyelonephritis and post op. - PT/OT daily. (2) Pyelonephritis Current Visit: Yes Status: Acute Base Code: N12 - TUBULO-INTERSTITIAL NEPHRITIS, NOT SPCF ACUTE OR CHRONIC Priority: High Comment: - Cx: E.coli sensitive to rocephin. - Transitioned to cefdinir BID x 5 additional days. - CBC/BMP in AM to check that white count still stable with new abx (3) Hypotension Current Visit: Yes Status: Acute Base Code: I95.9 - HYPOTENSION, UNSPECIFIED Priority: High Comment: - Since bladder removal surgery has been hypotensive. - Successfully rescuscitated in the ED with fluids. - Hold all BP meds, normotensive without them. - Consider adding back old medications if needed in future. (4) Penile pain Current Visit: Yes Status: Acute Base Code: N48.89 - OTHER SPECIFIED DISORDERS OF PENIS Comment: - Morphine PO 30mg Q4 hours HARRY - Tylenol 1000mg Q 6 hours. - F/u with urology oncology outpt, hopefully this week. Try to taper morphine as tolerated.
[2017-10-18] MEDS: MORPHINE SULFATE 15 MG TABLET PO SCH ×2 (17:52→22:04)
[2017-10-18] MEDS: ACETAMINOPHEN 500 MG TABLET PO SCH (17:53)
[2017-10-18] MEDS: SENNOSIDES/DOCUSATE SODIUM UD CAPSULE PO SCH (22:03)
[2017-10-18] MEDS: CEFDINIR 300 MG CAPSULE PO SCH (22:03)
[2017-10-18] MEDS: APIXABAN 5MG TABLET PO SCH (22:04)
[2017-10-18] MEDS: SIMVASTATIN 20 MG TABLET PO SCH (22:04)
[2017-10-19] MEDS: ACETAMINOPHEN 500 MG TABLET PO SCH ×4 (00:46→18:55)
[2017-10-19] MEDS: MORPHINE SULFATE 15 MG TABLET PO SCH ×5 (02:07→19:03)
[2017-10-19 09:29] LABS: BASO % 0.5 % (0-6); EOS % 2.8 % (0-6); HEMATOCRIT 27.5 % (42.0-52.0); HEMOGLOBIN 8.3 gm/dl (14.0-18.0); LYMPH % 10.1 % (16-45); MEAN CELL VOLUME 91.4 fl (81-97); MEAN CORPUSCULAR HGB CONC 30.2 g/dl (32-36); MEAN PLATELET VOLUME 9.2 fl (7.4-10.4); MONO % 11.6 % (0-9); PLATELET COUNT 238 K/uL (130-400); RED BLOOD COUNT 3.01 M/uL (4.40-5.70); RED CELL DISTRIBUTION WIDTH 15.5 % (11.5-14.5)
[2017-10-19 09:35] LABS: MEAN CORPUSCULAR HEMOGLOBIN 27.5 pg (27-33)
[2017-10-19 10:06] LABS: BLOOD UREA NITROGEN 21 mg/dL (8-23); CREATININE 0.9 mg/dL (0.7-1.2); EST GLOMERULAR FILTRATION RATE > 60 mL/min; GLUCOSE,RANDOM 140 mg/dL (74-109)
[2017-10-19] MEDS ORDERED: NALOXONE 0.4 MG/1 ML VIAL IVP ONE (10:15)
[2017-10-19] MEDS ORDERED: METOCLOPRAMIDE HCL 10 MG/2 ML VIAL IM PRN (10:15)
[2017-10-19] MEDS: APIXABAN 5MG TABLET PO SCH ×2 (10:48→22:43)
[2017-10-19] MEDS: CEFDINIR 300 MG CAPSULE PO SCH ×2 (10:49→22:39)
[2017-10-19] MEDS: SENNOSIDES/DOCUSATE SODIUM UD CAPSULE PO SCH ×2 (10:49→22:42)
--- NOTE | 2017-10-19 14:19 | Rehab Evaluation ---
Patient Information - Patient Information Diagnosis: generalized weakness Ordered Treatment: PT Evaluate and Treat Status: Initial Evaluation History: Detail (Patient presented to ED 10/14/17 with penile pain status post urostomy. The patient was referred to Swing Bed for generalized weakness.) Past Medical/Surgical Hx: PAST MEDICAL/SURGICAL HISTORY Past Surgical History Rt Elbow X 2; Back Surgery (Ruptured disc) L-4 to L-5 x 3; Cardiac Stent x 1 2001; Several Heart Cath (Thinks about 7); colonoscopy. bladder removal prostate removal urostomy placed chemo for bladder cancer and radiation. PMH - Respiratory Hx Respiratory Disorders Yes Hx Sleep Apnea Yes Hx of CPAP No Hx of SOB Yes: exertional PMH - Cardiovascular Hx Cardiovascular Disorders Yes Hx Abnormal EKG Yes: IA Hx Cardiac Catheterization Yes Hx Chest Pain Yes: none recently-last pain 2yrs ago Hx Heart Attack Yes: several MIs x6 Hx Hypertension Yes: meds fair control Hx Irregular Heartbeat Yes: Afib Hx Coronary Artery Disease Yes Hx Coronary Stent Yes: 2001 -x1 Comment: high cholesterol PMH - Neuro Hx Neurological Disorders No PMH - GI Hx Gastrointestinal Disorders Yes Hx Gastroesophageal Reflux Yes Hx Weight Loss/Weight Gain Yes PMH - Hx Genitourinary Disorders Yes Hx Bladder Problem Yes: blood in urine for past 3 months 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 His bedroom is on the second floor, with 13 steps and a L hand rail and 5 steps to enter the home with a L hand rail. The patient's bathroom is on the 1st floor. He has a tub/shower combination. Patient does not own any other equipment.) Precautions: [place], Fall - Time With Patient Total Time Spent With Patient (Min): 25 Treatment Procedures: Detail (Initial Evaluation.) Subjective Information - Subjective Information Per Patient (The patient had no complaints of pain and minimal complaints of lightheadedness.) Objective Data - Mental Status Patient Orientation: Oriented x3 - Visual Perception Appears within normal limits for therapeutic activities - ROM Within normal limits - Strength/Tone Not within normal limits (The patient's bilateral LE strength hip flexors 4/5, all other hip musculature was 5/5, knee flexors 4+/5, knee extensors and ankle musculature 5/5.) - Bed Mobility Independent - Transfers Independent (The patient was independent with sit to and from stand.) - Balance Balance Sitting: Good Balance Standing: Fair (The patient lost balance when posterior perturbation was applied. Patient had increased postural sway with tandem position, was unable to stand on one leg and had no difficulty with Romberg position.) - Gait Detail (The patient ambulated without device with CG for safety due to instability when he changes speed of gait a distance of 100 feet x 1 .) Therapy Assessment - Therapy Assessment Detail (Patient tolerated activity/exercises well. Patient is IND with all bed mobility and transfers. Feel patient will progress well with mobility with continued PT to work on balance, and strength. Patient was left sitting EOB with call light in reach.) Patient Education - Patient Education Teaching Topic: Exercise/Activity (heel to toe raises, LAQ, hip marches, glut squeezes, hamstring curls with resistance.) Response: Return Demonstration, Verbalize Understanding Teaching Method: Demonstration, Audiovisual Teaching Recipient: Patient Barriers To Learning: Age Related Problem List - Problem List Physical Therapy Problem List: Detail (1) Impaired balance 2) Decreased LE strength (hip/knee flexion) 3) Decreased tolerance to physical activity) Goals - Goals Physical Therapy Goals: 1) Patient will improve hip/knee flexion MMT grade by 1/ 3 for functional strength during gait. 2) Patient will tolerate 30 minutes of physical activity without complaints of fatigue. 3) Assess patient mobility on stairs. 4) Patient will ambulate 150' with no AD and SBA with steady gait pattern and no LOB. Prognosis - Prognosis Good Plan - Plan Physical Therapy Plan: Patient will be seen 1-2 times M-F for continued work on LE strengthening, balance training, stair training, and endurance activities.
--- NOTE | 2017-10-19 15:17 | Rehab Evaluation ---
Patient Information - Patient Information Diagnosis: deconditioning d/t pyelonephritis Ordered Treatment: OT Evaluate and Treat Status: Initial Evaluation Past Medical/Surgical Hx: PAST MEDICAL/SURGICAL HISTORY Past Surgical History Rt Elbow X 2; Back Surgery (Ruptured disc) L-4 to L-5 x 3; Cardiac Stent x 1 2001; Several Heart Cath (Thinks about 7); colonoscopy. bladder removal prostate removal urostomy placed chemo for bladder cancer and radiation. PMH - Respiratory Hx Respiratory Disorders Yes Hx Sleep Apnea Yes Hx of CPAP No Hx of SOB Yes: exertional PMH - Cardiovascular Hx Cardiovascular Disorders Yes Hx Abnormal EKG Yes: DC Hx Cardiac Catheterization Yes Hx Chest Pain Yes: none recently-last pain 2yrs ago Hx Heart Attack Yes: several MIs x6 Hx Hypertension Yes: meds fair control Hx Irregular Heartbeat Yes: Afib Hx Coronary Artery Disease Yes Hx Coronary Stent Yes: 2001 -x1 Comment: high cholesterol PMH - Neuro Hx Neurological Disorders No PMH - GI Hx Gastrointestinal Disorders Yes Hx Gastroesophageal Reflux Yes Hx Weight Loss/Weight Gain Yes PMH - Hx Genitourinary Disorders Yes Hx Bladder Problem Yes: blood in urine for past 3 months 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 His bedroom is on the second floor, there is no bathroom on the second floor. He has 5 steps with 1 railing at the entrance and 13 steps between levels in the house. He has a standard height toilet, no grab bars and a tub/shower combination, no seat or grab bars. He normally stands to shower and is Ind with all ADLs as well as yard work. His is responsible for home mgmt, meal prep and laundry. He ambulates without any assistive device.) Precautions: [place], Fall - Time With Patient Total Time Spent With Patient (Min): 45 Treatment Procedures: Detail (OT eval low complexity) Subjective Information - Subjective Information Per Patient Objective Data - Pain Pain Present: No - Mental Status Patient Orientation: Oriented x3 - Visual Perception Appears within normal limits for therapeutic activities (Pt wears glasses at all times.) - ROM Within normal limits ([place] UE AROM WNL) - Strength/Tone Within normal limits ([place] UE strength 4+/5 throughout) - Coordination Appears within normal limits for therapeutic activities - Bed Mobility Independent (Ind with supine to sit and sit to supine.) - Transfers Independent (Ind with sit to stand from EOB, chair and shower seat heights.) - Balance Balance Sitting: Good Balance Standing: Fair - Sensation Intact - Gait Detail (Pt ambulating in room without an assistive device with SBA.) - ADL's/IADL's Detail (Pt able to demonstrate Ind with showering in sitting with assist to wash back, Ind with doffing and donning gown, briefs, hospital pants, socks and velcro shoes. He is Ind with ostomy care.) Therapy Assessment - Therapy Assessment Detail (Pt is Ind with self cares although he becomes easily fatigued.) Problem List - Problem List Occupational Therapy Problem List: Detail (1. Decreased endurance for self care tasks. 2. Assess showering in standing to simulate home environment.) Goals - Goals Occupational Therapy Goals: 1. Pt will demonstrate improved endurance to allow safe and Ind ADLs. 2. Pt will be safe and Ind with showering in standing. Prognosis - Prognosis Good Plan - Plan Occupational Therapy Plan: OT 2-4 times per week to address self cares and endurance.
[2017-10-19] MEDS: SIMVASTATIN 20 MG TABLET PO SCH (22:42)
[2017-10-20] MEDS: ACETAMINOPHEN 500 MG TABLET PO SCH ×4 (00:46→18:03)
[2017-10-20] MEDS ORDERED: LIDOCAINE UROJECT 10 ML APPL MM ONE (08:29)
[2017-10-20] MEDS: CIPROFLOXACIN HCL 500 MG TABLET PO SCH ×2 (09:22→21:04)
[2017-10-20] MEDS: APIXABAN 5MG TABLET PO SCH ×2 (09:24→21:04)
[2017-10-20] MEDS: SENNOSIDES/DOCUSATE SODIUM UD CAPSULE PO SCH ×2 (09:25→21:04)
--- NOTE | 2017-10-20 11:41 | Occupational Therapy Tx Note ---
Occupational Therapy Tx Note - Treatment Note Tolerated: Good Total Time Spent With Patient: 45 (ADL, gait, therex) Occupational Therapy Treatment Note: Detail (S: Pt resting in room, feeling better today. O: Supine to sit Indly and doffed gown, hospital pants and slipper socks with SBA due to slight LOB when standing. Pt donned shirt, pants , socks and shoes with SBA to stand. Pt amb 500 feet + to rehab area with CG assist due to slight LOB to the rear at times. Pt completed akanksha UE reaching activity at and above shoulder height in sitting and standing with resistive clothespins. Pt had slight LOB to rear while reaching overhead in standing. Pt amb 500 feet + back to room with CG assist. A: Pt fatigued with long distance ambulation, some loss of balance noted to the rear rosetta. with looking and reaching overhead) Occupational Therapy Problem List: Detail (1. Decreased endurance for self care tasks. 2. Assess showering in standing to simulate home environment.) Occupational Therapy Goals: 1. Pt will demonstrate improved endurance to allow safe and Ind ADLs. 2. Pt will be safe and Ind with showering in standing. Prognosis: Good Occupational Therapy Plan: OT 2-4 times per week to address self cares and endurance.
--- NOTE | 2017-10-20 15:56 | Physical Therapy Tx Note ---
Physical Therapy Tx Note - Treatment Note Tolerated: Good Total Time Spent With Patient: 30 Physical Therapy Tx Note: Detail (Patient states no new complaints. Patient transferred supine to sit independently. Patient transferred sit to and from stand SBA x1. Patient ambulated 52 feet SBA x1. Patient ascended and descended 15 steps with railing on right when descending. Patient performed the following balance exercises x30 seconds each: feet together looking up and down, feet together looking side to side, feet together with eyes closed, and tandem stance. Patient performed the following exercises seated on edge of bed x10-20 reps each: marching, glut squeezes, LAQ, isometric hip abduction, heel raises, toe raises, and isometric hip adduction. Patient tolerated treatment well. Patient displays decreased balance with tandem stance, and feet together with eyes closed. Patient caught toe on step when not watching feet on steps, but stayed balanced. Patient completed steps safetly otherwise. Patient was left seated on edge of bed with call light within reach.) Physical Therapy Problem List: Detail (1) Impaired balance 2) Decreased LE strength (hip/knee flexion) 3) Decreased tolerance to physical activity) Physical Therapy Goals: 1) Patient will improve hip/knee flexion MMT grade by 1/ 3 for functional strength during gait. 2) Patient will tolerate 30 minutes of physical activity without complaints of fatigue. 3) Assess patient mobility on stairs. 4) Patient will ambulate 150' with no AD and SBA with steady gait pattern and no LOB. Prognosis: Good Physical Therapy Plan: Patient will be seen 1-2 times M-F for continued work on LE strengthening, balance training, stair training, and endurance activities.
[2017-10-20] MEDS: SIMVASTATIN 20 MG TABLET PO SCH (21:04)
[2017-10-21] MEDS: ACETAMINOPHEN 500 MG TABLET PO SCH ×2 (00:09→05:51)
--- NOTE | 2017-10-21 07:23 | Discharge Summary ---
Providers Discharge Summary Date: 10/21/17 Date of admission: 10/18/17 14:18 Expected Date of Discharge: 10/21/17 Attending physician: Roney Benson D.O. Primary care physician: ISAI HERNANDEZ D.O. Physical Exam - Vital Signs Vital Signs: Vital Signs - Last 24 Hrs Temp Pulse Resp BP Pulse Ox 10/20/17 20:00 98.8 F 71 18 141/87 99 10/20/17 10:20 146/82 10/20/17 08:00 98.8 F 64 14 154/91 97 - General General Appearance: Alert, Oriented x3, Cooperative, No acute distress - Head Head exam: Atraumatic, Normocephalic - Eye Eye exam: Normal appearance, EOMI. negative: Conjunctival injection - ENT ENT exam: Normal exam, Mucous membranes moist Nasal Exam: Normal inspection Mouth exam: Normal external inspection - Neck Neck exam: Normal inspection, Full ROM - Respiratory Respiratory exam: Normal lung sounds bilaterally - Cardiovascular Cardiovascular Exam: Regular rate, Normal rhythm, Normal heart sounds - GI/Abdominal GI/Abdominal exam: Soft, Normal bowel sounds. negative: Tenderness - Rectal Rectal exam: Deferred - exam: Normal inspection, Other (tip of penis pain improving probably from weiss use with his bladder surgery). negative: Scrotal swelling, Testicular tenderness, Urethral discharge - Extremities Extremities exam: Normal inspection, Full ROM. negative: Pedal edema - Back Back exam: Reports: Normal inspection - Neurological Neurological exam: Alert, Oriented X3 - Psychiatric Psychiatric exam: negative: Anxious, Depressed - Skin Skin exam: negative: Rash Hospitalization - Hospitalization Admission Diagnosis: Deconditioning d/t pyelonephritis - Problem List (1) Penile pain Current Visit: Yes Status: Acute Base Code: N48.89 - OTHER SPECIFIED DISORDERS OF PENIS Comment: - Tylenol 1000mg Q 6 hours. (2) Physical deconditioning Current Visit: Yes Status: Acute Base Code: R53.81 - OTHER MALAISE Comment : - 2/2 to pyelonephritis and post op (3) Pyelonephritis Current Visit: Yes Status: Acute Base Code: N12 - TUBULO-INTERSTITIAL NEPHRITIS, NOT SPCF ACUTE OR CHRONIC Comment: - Cx: E.coli sensitive to cipro, oral cipro 500 mg BID - Hospitalization Course Disposition: Home, Self-Care Reason For Discharge/Transfer: Medical Stability Hospital Course: patient gradually improved . The first day in swing patient went respiratory failure with narcotics and he was given narcan .4 mg and that reversed his respiratory failure and all narcotics stop and patient did much better. pain is being controlled with tylenol and lidojet for his tip of the penis pain. Patient is afebrile and doing much better and ambulating around the room without difficulties Abnormal Labs: Abnormal Lab Results 10/19/17 10/19/17 10/19/17 Range/Units 09:12 09:12 10:30 WBC 4.0 L (4.2-12.2) K/uL RBC 3.01 L (4.40-5.70) M/uL Hgb 8.3 L (14.0-18.0) gm/dl Hct 27.5 L (42.0-52.0) % MCHC 30.2 L (32-36) g/dl RDW 15.5 H (11.5-14.5) % Lymphocytes % 10.1 L (16-45) % Monocytes % 11.6 H (0-9) % POC Glucose 134 H (70-110) mg/dL Random Glucose 140 H (74-109) mg/dL Condition at Discharge: (1) Good Discharge Medications - Discharge Medications Prescriptions: Acetaminophen [Tylenol 500Mg Tab] 1,000 mg PO Q6HR #100 tablet Ciprofloxacin HCl [Cipro] 500 mg PO Q12HR #20 tablet Apixaban [Eliquis] 5 mg PO BID #60 tablet Hydrochlorothiazide [Hctz 12.5MG] 12.5 mg PO DAILY #30 cap Metoprolol Succinate 25 mg PO DAILY #30 tab.er.24h Potassium Chloride 10 meq PO DAILY #30 tablet.er Home Medications: Ambulatory Orders Cholecalciferol [Vitamin D3] 1,000 unit PO QAM 12/23/13 [Last Taken 08/24/17] Folic Acid 1 mg PO QAM 12/23/13 [Last Taken 08/24/17] Simvastatin [Zocor] 20 mg PO DAILY 10/14/17 [Last Taken Unknown] Acetaminophen [Tylenol 500Mg Tab] 1,000 mg PO Q6HR tablet 10/18/17 [Last Taken Unknown] Acetaminophen [Tylenol 500Mg Tab] 1,000 mg PO Q6HR #100 tablet 10/21/17 [Last Taken Unknown] Apixaban [Eliquis] 5 mg PO BID #60 tablet 10/21/17 [Last Taken Unknown] Ciprofloxacin HCl [Cipro] 500 mg PO Q12HR #20 tablet 10/21/17 [Last Taken Unknown] Hydrochlorothiazide [Hctz 12.5MG] 12.5 mg PO DAILY #30 cap 10/21/17 [Last Taken Unknown] Metoprolol Succinate 25 mg PO DAILY #30 tab.er.24h 10/21/17 [Last Taken Unknown] Potassium Chloride 10 meq PO DAILY #30 tablet.er 10/21/17 [Last Taken Unknown] Discharge Plan - Discharge Instructions Activity at Discharge: Increase Activity as Tolerated Diet at Discharge: Low Salt Diet Additional Instructions: follow up with Dr. Hernandez in one week follow up with Ortega Tracy Dr. as scheduled [facility] if any problems use frederick Tracy gave him for his penis pain metoprolol succinate is at a lower dosage because his BP is running lower start hctz 12.5 mg daily for BP and his leg edema potassium chloride 10 meq once aday please schedule a outpatient bmp on nov 01 and send a copy to both Dr. Hernandez and Dr. Benson Quality Measures - Quality Measures Quality Measures: Advance Directives, Coronary Artery Disease: Antiplatelet Therapy, Documentation of Current Medications in Medical Record, Elder Maltreatment Screen and Follow-Up Plan, Screening for High Blood Pressure and F/ U Documented - Current Medications Quality Measure: Measure #130: Documentation of Current Medications Documentation of Current Medications: <Current Medications Documented/Reviewed> [[id number]] - Blood Pressure Screening Quality Measure: Screening for High Blood Pressure and Follow-Up Documented Does Patient Have Any of the Following: Active Dx of HTN Blood Pressure Classification: Pre-Hypertensive BP Reading Systolic Measurement: 141 Diastolic Measurement: 87 Screening for High Blood Pressure: Patient Exclusion, Hx of HTN [G9744] - Coronary Artery Disease Quality Measure: Measure #6: Coronary Artery Disease (CAD) Antiplatelet Therapy: Not Prescribed for Medical Reason [1576F with 1P] Medical Reason for NOT Prescribing Antiplatelet: Other Medical Reason - Advance Directives Quality Measure: Measure #47: Care Plan Advance Directives Established: No Advance Directives Information Provided To Patient: Declined Advance Directives on File: No Living Will: No Power of Geotechnical Field Technician: No Advance Care Planning: <Care Plan/Decision Maker Documented; Discussed & Documented> [4243F] - Elder Abuse Suspicion Index Screening: Elder Abuse Suspicion Index Screening Rely on people for bathing, dressing, shopping, banking, etc: No Prevented from getting food, clothes, medication, etc: No Made to feel shamed or threatened by someone: No Forced to sign papers or use money against will: No Feel afraid, touched in ways not wanted or hurt physically: No Poor eye contact, withdrawn, malnourished, cuts or bruises: No Screening Result: Negative result EASI Reference Information: Rach GUILLERMO, Elzbieta Grover, Chastity Dick, Eunice Tracy.Development and validation of a tool to assist physicians identification of elder abuse: The Elder Abuse Suspicion Index (EASI ). Journal of Elder Abuse and Neglect, 2008; 20 (3): 276-300. - Elder Maltreatment Screen Quality Measures: Elder Maltreatment Screen and Follow-Up Plan Elder Maltreatment Screen: <Negative, No Follow-Up Plan Required> [G8734]
[2017-10-21 07:46] LABS: HEMATOCRIT 29.9 % (42.0-52.0); HEMOGLOBIN 9.2 gm/dl (14.0-18.0); MEAN CELL VOLUME 89.5 fl (81-97); MEAN CORPUSCULAR HEMOGLOBIN 27.5 pg (27-33); MEAN CORPUSCULAR HGB CONC 30.8 g/dl (32-36); MEAN PLATELET VOLUME 9.6 fl (7.4-10.4); PLATELET COUNT 273 K/uL (130-400); RED BLOOD COUNT 3.34 M/uL (4.40-5.70); RED CELL DISTRIBUTION WIDTH 15.5 % (11.5-14.5); WHITE BLOOD COUNT W/O DIFF 4.2 K/uL (4.2-12.2)
[2017-10-21 07:52] LABS: BLOOD UREA NITROGEN 22 mg/dL (8-23); CREATININE 0.9 mg/dL (0.7-1.2); EST GLOMERULAR FILTRATION RATE > 60 mL/min
[2017-10-21 07:55] LABS: GLUCOSE,RANDOM 146 mg/dL (74-109)
[2017-10-21 08:00] LABS: HYPOCHROMIA 1+; PLATELET ESTIMATE NORMAL (NORMAL)
[2017-10-21] MEDS: CIPROFLOXACIN HCL 500 MG TABLET PO SCH ×2 (08:44→11:47)
[2017-10-21] MEDS: POTASSIUM CHLORIDE 10 MEQ TAB PO SCH ×2 (08:45→11:48)
[2017-10-21] MEDS: APIXABAN 5MG TABLET PO SCH ×2 (08:45→11:47)
[2017-10-21] MEDS: HYDROCHLOROTHIAZIDE 12.5 MG CAPSULE PO SCH ×2 (08:45→11:47)
[2017-10-21] MEDS: METOPROLOL SUCC 25 MG TAB.ER PO SCH ×2 (08:45→11:48)
[2017-10-21] MEDS: SENNOSIDES/DOCUSATE SODIUM UD CAPSULE PO SCH ×2 (08:46→11:48)
--- NOTE | 2017-10-21 11:41 | Physical Therapy Tx Note ---
Physical Therapy Tx Note - Treatment Note Tolerated: Good Total Time Spent With Patient: 35 Physical Therapy Tx Note: Detail (Patient states stomach painful today. Patient transferred sit to and from stand independently. Patient ambulated 635 feet without assistive device SBA x1. Patient performed the following balance exercises x30 seconds each: foam weight shift A/P, foam weight shift lateral, foam feet together, feet together with eyes closed on flooor, foam feet together looking side to side, foam feet together looking up and down, and tandem stance on floor bilateral. Patient transferred sit to and from stand independently. Patient ambulated 11 feet x2 without assistive device SBA x1. Patient performed the following balance exercises x20 feet each: marching, walking backwards, and sidestepping. Patient transferred sit to and from stand independently. Patient performed the following standing exercises x10 reps each : squats, heel raises, and toe raises. Patient tolerated treatment well. Patient reports fatigued after treatment. Patient was left seated on edge of bed with call light within reach.) Physical Therapy Problem List: Detail (1) Impaired balance 2) Decreased LE strength (hip/knee flexion) 3) Decreased tolerance to physical activity) Physical Therapy Goals: 1) Patient will improve hip/knee flexion MMT grade by 1/ 3 for functional strength during gait. 2) Patient will tolerate 30 minutes of physical activity without complaints of fatigue. 3) Assess patient mobility on stairs. 4) Patient will ambulate 150' with no AD and SBA with steady gait pattern and no LOB. Prognosis: Good Physical Therapy Plan: Anticipate pt discharge, unless further instructed.
--- NOTE | 2017-10-22 11:59 | Rehab Discharge Summary ---
Patient Information - Patient Information Diagnosis: generalized weakness Ordered Treatment: PT Evaluate and Treat History: Detail (Patient presented to ED 10/14/17 with penile pain status post urostomy. The patient was referred to [facility] for generalized weakness.) Past Medical/Surgical Hx: PAST MEDICAL/SURGICAL HISTORY Past Surgical History Rt Elbow X 2; Back Surgery (Ruptured disc) L-4 to L-5 x 3; Cardiac Stent x 1 2001; Several Heart Cath (Thinks about 7); colonoscopy. bladder removal prostate removal urostomy placed chemo for bladder cancer and radiation. PMH - Respiratory Hx Respiratory Disorders Yes Hx Sleep Apnea Yes Hx of CPAP No Hx of SOB Yes: exertional PMH - Cardiovascular Hx Cardiovascular Disorders Yes Hx Abnormal EKG Yes: [place] Hx Cardiac Catheterization Yes Hx Chest Pain Yes: none recently-last pain 2yrs ago Hx Heart Attack Yes: several MIs x6 Hx Hypertension Yes: meds fair control Hx Irregular Heartbeat Yes: Afib Hx Coronary Artery Disease Yes Hx Coronary Stent Yes: 2001 -x1 Comment: high cholesterol PMH - Neuro Hx Neurological Disorders No Hx Seizures No PMH - GI Hx Gastrointestinal Disorders Yes Hx Gastroesophageal Reflux Yes Hx Weight Loss/Weight Gain Yes PMH - Hx Genitourinary Disorders Yes Hx Bladder Problem Yes: blood in urine for past 3 months 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 His bedroom is on the second floor, with 13 steps and a L hand rail and 5 steps to enter the home with a L hand rail. The patient's bathroom is on the 1st floor. He has a tub/shower combination. Patient does not own any other equipment.) Precautions: [place], Fall Subjective Information - Subjective Information Per Patient (The patient continues to have complaints of penile pain. The patient did not rate pain using 0 to 10 pain scale.) Objective Data - Mental Status Patient Orientation: Oriented x3 - Visual Perception Appears within normal limits for therapeutic activities - ROM Within normal limits - Strength/Tone Not within normal limits (The patient's strength is generally 5/5 except for blateral hip flexors 4/5 and knee flexors 4+/5.) - Bed Mobility Independent (Independent supine to and from sit transfer.) - Transfers Independent (Independent sit to and from stand transfer.) - Balance Balance Sitting: Good Balance Standing: Fair (The patient had difficulty with high level balance activities including tandem stance and standing on one leg. LOB was present when patient was fatigued.) - Gait Detail ( The patient ambulated without device independently to supervision ( due to occasional unsteadiness) community distances. The patient ambulated on 15 steps with use of one railing with supervision for safety.) Therapy Assessment - Therapy Assessment Detail (The patient has improved ability to complete prolonged physical activity. The patient required supervision with ambulation on levels and stairs secondary to LOB and gait unsteadiness when fatigued. The patient is to receive Home PT.) Patient Education - Patient Education Teaching Topic: Exercise/Activity (The patient was instructed in a HEP of LE strengthening exercises ie: hip marching, LAQ, heel and toe raises and gluteal sets.) Response: Return Demonstration Teaching Method: Discussion, Demonstration Teaching Recipient: Patient Barriers To Learning: Age Related Problem List - Problem List Physical Therapy Problem List: Detail (1) Impaired balance 2) Decreased LE strength (hip/knee flexion) 3) Decreased tolerance to physical activity) Occupational Therapy Problem List: Detail (1. Decreased endurance for self care tasks. 2. Assess showering in standing to simulate home environment.) Goals - Goals Physical Therapy Goals: 1) Patient will improve hip/knee flexion MMT grade by 1/ 3 for functional strength during gait. (Goal partially met). 2) Patient will tolerate 30 minutes of physical activity without complaints of fatigue. (Goal met). 3) Assess patient mobility on stairs.(Goal met). 4) Patient will ambulate 150' with no AD and SBA with steady gait pattern and no LOB. (Goal met) Occupational Therapy Goals: 1. Pt will demonstrate improved endurance to allow safe and Ind ADLs. 2. Pt will be safe and Ind with showering in standing. Plan - Plan Physical Therapy Plan: Patient discharged from [facility] to home. The patient is to receive Home PT. Occupational Therapy Plan: OT 2-4 times per week to address self cares and endurance.
--- NOTE | 2017-10-25 10:39 | Rehab Discharge Summary ---
Patient Information - Patient Information Diagnosis: deconditioning due to pyelonephritis Ordered Treatment: OT Evaluate and Treat History: Detail (Patient presented to ED 10/14/17 with penile pain status post urostomy. The patient was referred to [facility] for generalized weakness.) Past Medical/Surgical Hx: PAST MEDICAL/SURGICAL HISTORY Past Surgical History Rt Elbow X 2; Back Surgery (Ruptured disc) L-4 to L-5 x 3; Cardiac Stent x 1 2001; Several Heart Cath (Thinks about 7); colonoscopy. bladder removal prostate removal urostomy placed chemo for bladder cancer and radiation. PMH - Respiratory Hx Respiratory Disorders Yes Hx Sleep Apnea Yes Hx of CPAP No Hx of SOB Yes: exertional PMH - Cardiovascular Hx Cardiovascular Disorders Yes Hx Abnormal EKG Yes: LA Hx Cardiac Catheterization Yes Hx Chest Pain Yes: none recently-last pain 2yrs ago Hx Heart Attack Yes: several MIs x6 Hx Hypertension Yes: meds fair control Hx Irregular Heartbeat Yes: Afib Hx Coronary Artery Disease Yes Hx Coronary Stent Yes: 2001 -x1 Comment: high cholesterol PMH - Neuro Hx Neurological Disorders No Hx Seizures No PMH - GI Hx Gastrointestinal Disorders Yes Hx Gastroesophageal Reflux Yes Hx Weight Loss/Weight Gain Yes PMH - Hx Genitourinary Disorders Yes Hx Bladder Problem Yes: blood in urine for past 3 months 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 His bedroom is on the second floor, there is no bathroom on the second floor. He has 5 steps with 1 railing at the entrance and 13 steps between levels in the house. he has a standard height toilet, no grab bars and a tub/shower combination, no seat or grab bars. He normally stands to shower and is Ind with all ADLs as well as yard work. His is responsible for home mgmt, meal prep and laundry. He ambulates without any assistive device.) Precautions: [place], [place] Subjective Information - Subjective Information Per Patient Objective Data - Pain Pain Present: No - Mental Status Patient Orientation: Oriented x3 - Visual Perception Appears within normal limits for therapeutic activities - ROM Within normal limits ([place] UE AROM WNL) - Strength/Tone Within normal limits ([place] UE strength 4+/5) - Coordination Appears within normal limits for therapeutic activities - Bed Mobility Independent - Transfers Independent - Balance Balance Sitting: Good Balance Standing: Fair (Pt has some balance deficits in standing at times.) - Sensation Intact - Gait Detail (Pt ambulating Indly community distances although has decreased balance at times.) - ADL's/IADL's Detail (Pt is Ind with total body dressing, showering, ostomy care and grooming/ hygiene.) Therapy Assessment - Therapy Assessment Detail (Ind with self cares and improved endurance.) Problem List - Problem List Physical Therapy Problem List: Detail (1) Impaired balance 2) Decreased LE strength (hip/knee flexion) 3) Decreased tolerance to physical activity) Occupational Therapy Problem List: Detail (1. Decreased endurance for self care tasks. 2. Assess showering in standing to simulate home environment.) Goals - Goals Physical Therapy Goals: 1) Patient will improve hip/knee flexion MMT grade by 1/ 3 for functional strength during gait. (Goal partially met). 2) Patient will tolerate 30 minutes of physical activity without complaints of fatigue. (Goal met). 3) Assess patient mobility on stairs.(Goal met). 4) Patient will ambulate 150' with no AD and SBA with steady gait pattern and no LOB. (Goal met) Occupational Therapy Goals: Goals met: 1. Pt will demonstrate improved endurance to allow safe and Ind ADLs. 2. Pt will be safe and Ind with showering in standing. Prognosis - Prognosis Good Plan - Plan Physical Therapy Plan: Patient discharged from [facility] to home. The patient is to receive Home PT. Occupational Therapy Plan: Pt discharged home with home therapy services.
== END 2017-10-21 12:47 | disposition home or self-care (01) | DRG 948 ==
LOC: MEDSURG 14:18
PROVIDERS: ADMIT Internal Medicine; ATTEND Internal Medicine
DX: R53.81 Other malaise (principal); N12 Tubulo-interstitial nephritis, not specified as acute or chronic; N48.89 Other specified disorders of penis; I95.9 Hypotension, unspecified; I25.2 Old myocardial infarction; E78.00 Pure hypercholesterolemia, unspecified; Z98.61 Coronary angioplasty status; Z95.5 Presence of coronary angioplasty implant and graft; Z85.51 Personal history of malignant neoplasm of bladder; Z90.6 Acquired absence of other parts of urinary tract; Z90.79 Acquired absence of other genital organ(s)
CPT/HCPCS: 36416; 80048; 82948; 85025; 85027; 97110; 97116; 97530; 97535; 99304; 99309; J2310; J2765